=== PATIENT | female | born 1960 | race Caucasian/White ===

== ENCOUNTER → 2017-01-03 | Outpatient (CLI) | payer BC ==
[~2017-01-03] MED LIST: AMT10 PO; CLR10 PO
--- NOTE | 2017-01-04 13:17 | MAMMOGRAPHY REPORT ---
BILATERAL DIGITAL SCREENING MAMMOGRAM TOMOSYNTHESIS WITH CAD: 01/03/2017 CLINICAL HISTORY: Routine screening examination. TECHNIQUE: Breast tomosynthesis in addition to standard 2D mammography was performed. Current study was also evaluated with a Computer Aided Detection (CAD) system. COMPARISON: Comparison is made to exams dated: 12/28/2015 mammogram, 10/30/2014 mammogram, 07/19/2012 ma mmogram, and 06/19/2011 mammogram - [facility]. BREAST COMPOSITION: The tissue of both breasts is extremely dense, which lowers the sensitivity of mammography. FINDINGS: There are coarsening calcifications in the upper outer posterior right breast. No new susp icious mass, architectural distortion or cluster of new, suspicious microcalcifications is seen. IMPRESSION: ACR BI-RADS CATEGORY 2: BENIGN There is no mammographic evidence of malignancy. A 1 year screening mammogram is recommended. The p atient will receive written notification of the results. Approximately 10% of breast cancers are not detected with mammography. A negative mammographic repor t should not delay biopsy if a clinically suggestive mass is present. Lupe Grewal M.D. ay/:01/03/2017 17:07:41 Public Safety Officer: Padmini ALMONTE(Tracey)(Alfred), [facility] letter sent: Normal 1/2 BI-RADS Code: ACR BI-RADS Category 2: Benign
== END | disposition home or self-care (01) ==
LOC: C.MAMM 16:44
PROVIDERS: ATTEND Obstetrics & Gynecology
DX: Z12.31 Encounter for screening mammogram for malignant neoplasm of breast (principal)

== ENCOUNTER → 2017-09-27 | Outpatient (CLI) | payer BC | END | disposition home or self-care (01) | LOC: C.MAMM 08:18 | PROVIDERS: ATTEND Internal Medicine | DX: M80.079 Age-related osteoporosis with current pathological fracture, unspecified ankle and foot (principal) ==

== ENCOUNTER → 2017-12-27 | Outpatient (CLI) | payer OTHER | END | disposition home or self-care (01) | LOC: C.PAPS 09:24 | PROVIDERS: ATTEND Obstetrics & Gynecology | DX: N95.2 Postmenopausal atrophic vaginitis (principal) ==

== ENCOUNTER → 2018-01-09 | Outpatient (CLI) | payer OTHER ==
--- NOTE | 2018-01-10 15:17 | MAMMOGRAPHY REPORT ---
BILATERAL DIGITAL SCREENING MAMMOGRAM TOMOSYNTHESIS WITH CAD: 01/09/2018 CLINICAL HISTORY: Routine screening. Patient has no complaints. TECHNIQUE: Breast tomosynthesis in addition to standard 2D mammography was performed. Current study was also evaluated with a Computer Aided Detection (CAD) system. COMPARISON: Comparison is made to exams dated: 01/03/2017 mammogram, 12/28/2015 mammogram, 10/30/2014 mamm ogram, 10/28/2013 mammogram, 07/19/2012 mammogram, and 06/19/2011 mammogram - [facility]. BREAST COMPOSITION: The tissue of both breasts is extremely dense, which lowers the sensitivity of m ammography. FINDINGS: No suspicious masses, calcifications, or areas of architectural distortion are noted in ei ther breast. There has been no significant interval change compared to prior exams. Benign-appearing right breast calcifications are not significantly changed. IMPRESSION: ACR BI-RADS CATEGORY 2: BENIGN There is no mammographic evidence of malignancy. A 1 year screening mammogram is recommended. The pa tient will receive written notification of the results. Approximately 10% of breast cancers are not detected with mammography. A negative mammographic report should not delay biopsy if a clinically suggestive mass is present. Lindsey Aguilar M.D. ah/:01/09/2018 16:44:28 Floor Mechanic: Jemima HAWKINS)(M), [facility] letter sent: Normal 1/2 BI-RADS Code: ACR BI-RADS Category 2: Benign
== END | disposition home or self-care (01) ==
LOC: C.MAMM 16:24
PROVIDERS: ATTEND Obstetrics & Gynecology
DX: Z12.31 Encounter for screening mammogram for malignant neoplasm of breast (principal)

== ENCOUNTER 2020-10-01 06:46 | Observation (INO) ==
--- NOTE | 2020-09-15 13:38 | PAT Medication Instructions ---
Medication Instructions Date of Service September 15, 2020 Home Medications Medication Instructions Recorded oxycodone-acetaminophen [Percocet] 1 tab PO Q6H PRN #30 tab 03/11/20 [place]-3 + Vitamin D3 2 cap PO QAM Probiotic 40 mmu cells PO QAM biotin 5,000 mcg PO QAM cetirizine-pseudoephedrine [Zyrtec-D] 1 tab PO QAM cholecalciferol (vitamin D3) 125 mcg PO QAM multivitamin 1 tab PO QAM potassium gluconate 595 mg PO QAM oxycodone-acetaminophen [Percocet] 1 tab PO Q6H PRN cholecalciferol (vitamin D3) 125 mcg PO QAM docusate sodium [Colace] 100 mg PO QAM magnesium 500 mg PO HS meloxicam 15 mg PO QAM sennosides [Senna Soft] 15 mg PO QAM ASK your surgeon for instructions meloxicam 15 mg PO QAM STOP taking 2 weeks before surgery If surgery is within 2 weeks, stop taking as soon as possible. [place]-3 + Vitamin D3 2 cap PO QAM DO NOT take the morning of surgery Probiotic 40 mmu cells PO QAM biotin 5,000 mcg PO QAM cetirizine-pseudoephedrine [Zyrtec-D] 1 tab PO QAM cholecalciferol (vitamin D3) 125 mcg PO QAM multivitamin 1 tab PO QAM potassium gluconate 595 mg PO QAM cholecalciferol (vitamin D3) 125 mcg PO QAM docusate sodium [Colace] 100 mg PO QAM sennosides [Senna Soft] 15 mg PO QAM Take evening before surgery oxycodone-acetaminophen [Percocet] 1 tab PO Q6H PRN (if needed) magnesium 500 mg PO HS NOTHING TO EAT OR DRINK AFTER MIDNIGHT. Other Notes If you have any questions please call us at [phone] or [phone] or [phone] or [phone]
--- NOTE | 2020-09-20 09:28 | Anesthesiology Consultation ---
Date of Service September 20, 2020 Assessment & Plan (1) Encounter for pre-operative examination: COVID Status: As of 09/20 assessment, patient denies travel to endemic area, known exposure/sick contacts, or symptoms of COVID19. Patient instructed that they and their household members must follow strict social distancing guidelines, wear a mask in public and avoid travel/events/gatherings for 14 days prior to surgery -- pt specifically denies any travel or gathering planned for Thanksgiving. Preoperative COVID19 testing to be completed prior to surgery per surgeon's arrangements (09/27 at [facility]). Patient made aware to self-isolate as much as possible between COVID testing and surgery. Chart Review Chart Review: Acceptable Risk for Surgery and Patient seen in Pre Admission Testing Teaching & Discussion Instructed NPO after midnight before surgery, except medications with 15 cc of water. Medication instructions provided according to the PAT guidelines. History Surgery Operation Date: 10/01/20 09:30 Proposed Procedures p Right Total Knee Arthroplasty - Madi Schneider, Height/Weight Height: 5 ft 4 in Weight: 66.7 kg Allergies Allergy/AdvReac Type Severity Reaction Status Date / Time codeine Allergy Intermediate RASH/HIVES Verified 09/06/20 14:59 latex Allergy Intermediate Rash Verified 09/06/20 15:01 Penicillins Allergy Intermediate RASH/HIVES Verified 09/06/20 14:59 plastic packing from ortho Allergy Intermediate Rash Uncoded 09/06/20 14:59 procedur Additional Notes: Surgeon is aware of reaction to plastic taping/wrapping. Medications Home Medications Medication Instructions Recorded Confirmed Last Taken [place]-3 + Vitamin D3 2 cap PO QAM 03/01/20 09/06/20 03/10/20 Probiotic 40 mmu cells PO QAM 03/01/20 09/06/20 03/10/20 biotin 5,000 mcg PO QAM 03/01/20 09/06/20 03/10/20 cetirizine-pseudoephedrine 1 tab PO QAM 03/01/20 09/06/20 03/10/20 [Zyrtec-D] cholecalciferol (vitamin D3) 125 mcg PO QAM 03/01/20 09/06/20 03/10/20 [Vitamin D3] multivitamin 1 tab PO QAM 03/01/20 09/06/20 03/10/20 potassium gluconate 595 mg PO QAM 03/01/20 09/06/20 03/10/20 oxycodone-acetaminophen [Percocet] 1 tab PO Q6H PRN #30 tab 03/11/20 09/06/20 Unknown cholecalciferol (vitamin D3) 125 mcg PO QAM 09/06/20 09/06/20 Unknown [Vitamin D3] docusate sodium [Colace] 100 mg PO QAM 09/06/20 09/06/20 Unknown magnesium 500 mg PO HS 09/06/20 09/06/20 Unknown meloxicam 15 mg PO QAM 09/06/20 09/06/20 Unknown sennosides [Senna Soft] 15 mg PO QAM 09/06/20 09/06/20 Unknown Past Medical History Medical History (Updated 09/20/20 @ 13:59 by Figueroa Regalado) Environmental and seasonal allergies Heart valve disease Mild MR, TR and AI noted on 2019 stress echo. Leg cramps Osteoarthritis Exercise / Class Metabolic Activity 1 > 8 Run/Swim/Ski/Tennis (Pt very active playing tennis) Past Family History Family History Father Lung cancer Mother Parkinson disease Family history of diabetes mellitus Brother Family history of diabetes mellitus Past Surgical History Surgical History H/O dilation and curettage History of colonoscopy History of cryosurgery cervix History of repair of rotator cuff RIGHT History of tonsillectomy S/P carpal tunnel release RT S/P fine needle biopsy Right breast S/P ovarian cystectomy dermoid cyst [place] teeth removed Past Anesthesia History No Hx of Anesthesia Complications and No Family Hx of Anesthesia Complications History of PONV No Hx of PONV and Hx of Motion Sickness Social History Smoking Status: Former smoker tobacco type: cigarettes Do You Dip or Chew Tobacco: No Smoking End Date: MAY 2000 Hx Alcohol Use: No Hx Substance Use: No substance use type: does not use Review of Systems Pt denies any recent chest pain, shortness of breath, palpitations, cough, fever, URI, or uncontrolled acid reflux. Physical Exam Vital Signs BP: 118/77 P: 82bpm SPO2: 99% RA T: 98.1 F R: 16 ENMT Mouth: + dental restorations (many crowns on molars, also R upper canine); no c hipped teeth Thyromental Distance: > or= 3.5 Finger Breadths Mallampati Class: II Neck normal visual inspection; neck extension not limited Respiratory normal respiratory effort, lungs clear to auscultation Cardiovascular RRR, no murmur, no edema Vessels: + bounding carotid pulses; no carotid bruit Testing Laboratory Results 09/20/20 09:44 09/20/20 09:44 PT 10.7 Seconds (9.0-12.0) 09/20/20 09:44 INR 1.0 (0.9-1.1) 09/20/20 09:44 APTT 27.6 Seconds (21.0-31.0) 09/20/20 09:44 Blood Type B Positive 09/20/20 09:44 Antibody Screen NEGATIVE 09/20/20 09:44 A1C 08/07/20 = 5.8% Electrocardiogram Date: 09/20/20 Findings: + NSR @ (80bpm) *unconfirmed Chest X-Ray Date: 09/20/20 Findings: + NAD Stress Test Date: 10/20/19 Type: exercise Findings: + WNL; no ischemia Resting EF: 55-59% Mild MR/TR/AR. Grade I diastolic dysfunction. Exercise capacity above average.
--- NOTE | 2020-09-20 10:17 | XRay Report ---
XR chest Pre-admission PA/Lat CLINICAL HISTORY: Preoperative chest COMPARISON STUDY: May 2007 FINDINGS: The cardiac and mediastinal contours are normal. There is no evidence of focal pulmonary co nsolidation. There is no evidence of failure. No pleural effusions are visualized.[ IMPRESSION: No active disease in the chest. ACT 112: Negative or not required by law. Electronically signed by: Quoc Ibarra M.D. 09/20/2020 10:15 AM
[2020-09-20 11:02] LABS: Basophils # (auto) 0.02 K/uL (0-0.2); Basophils % (auto) 0.5 %; Eosinophils # (auto) 0.01 K/uL (0-0.5); Eosinophils % (auto) 0.2 %; Hematocrit (blood only) 36.4 % (37-47); Hemoglobin 12.5 g/dL (12.0-16.0); Immature Granulocytes # (auto) 0.01 K/uL (0.00-0.02); Immature Granulocytes % (auto) 0.2 %; Mean Corpuscular Hemoglobin 30.9 pg (25-34); Mean Corpuscular Hgb Conc 34.3 g/dL (32-36); Mean Corpuscular Volume 90.1 fL (80-100); Mean Platelet Volume 10.4 fL (7.4-10.4); Monocytes # (auto) 0.45 K/uL (0.11-0.59); Monocytes % (auto) 10.7 %; Neutrophils # (auto) 2.41 K/uL (1.4-6.5); Neutrophils % (auto) 57.4 %; Platelet Count 238 K/uL (130-400); RDW Coefficient of Variation 11.8 % (11.5-14.5); RDW Standard Deviation 38.7 fL (36.4-46.3); Red Blood Count 4.04 M/uL (4.2-5.4)
[2020-09-20 11:14] LABS: Partial Thromboplastin Time 27.6 Seconds (21.0-31.0); Prothrombin Time 10.7 Seconds (9.0-12.0)
[2020-09-20 11:45] LABS: BUN Creatinine Ratio 19.4 (10-20); Calcium 9.1 mg/dl (8.5-10.1); Est GFR (African American) 100.6; Est GFR (Non-African American) 86.8; Potassium 4.1 mmol/L (3.5-5.1)
--- NOTE | 2020-09-21 06:01 | Electrocardiogram Report ---
Test Reason : Blood Pressure : / mmHG Vent. Rate : 080 BPM Atrial Rate : 080 BPM P-R Int : 138 ms QRS Dur : 086 ms QT Int : 390 ms P-R-T Axes : 067 045 057 degrees QTc Int : 449 ms Normal sinus rhythm Normal ECG When compared with ECG of 19-JUN-2007 19:32, Vent. rate has increased BY 28 BPM Confirmed by Allan Dos Santos ([id number]) on 09/21/2020 6:01:08 AM Referred By: Madi Schneider Confirmed By:Allan Dos Santos
[~2020-10-01 06:46] MED LIST changes: +ACETAMINOPHEN 500 MG TAB PO SCH; -AMT10 PO; +BUPIVACAINE 0.25% 30 ML VIAL ONE; +BUPIVACAINE 0.5 % 5 MG/1 ML PF 10ML VIAL ONE; -CLR10 PO; +FAMOTIDINE 20 MG TAB PO SCH; +GABAPENTIN 600 MG DOSE PO SCH; +LR 500ML BOLUS, THEN 15ML/HR IV SCH; +LR 60ML/HR IV SCH; +ROPIVACAINE 0.5% HCL/PF 150 MG, BUPIVACAINE 0.75% MPF 20 ML, EPINEPHrine 30MG/30ML (OR ... INFIL SCH; +TRANEXAMIC ACID 1,000 MG **IV Intra-op IV SCH; +TRANEXAMIC ACID 1,000 MG **IV Pre-op IV SCH; +ceFAZolin 1000MG 1,000 MG/7.5 ML SYR IV SCH; +dexAMETHasone 4 MG TAB PO SCH
--- NOTE | 2020-10-01 06:46 | History & Physical Report ---
Date of Service October 01, 2020 Assessment & Plan (1) Right knee DJD: We will proceed with a right total knee arthroplasty. Postoperatively she will be started on aspirin for DVT prophylaxis. She will be kept overnight for postoperative medical management. She plans to use [facility] as a private physical therapist upon discharge. Present on Admission?: Yes History of Present Illness Chief Complaint: Primary osteoarthritis of the right knee Primary Care Provider: Braeden Chavira MD Cristiana is a pleasant 60-year-old female has been dealing with chronic increasing right knee pain. X-rays and clinical examination have been diagnostic for advanced osteoarthritis of the right knee. After failing conservative treatment, she has elected to proceed with a right total knee arthroplasty. Allergies Allergy/AdvReac Type Severity Reaction Status Date / Time codeine Allergy Intermediate RASH/HIVES Verified 09/06/20 14:59 latex Allergy Intermediate Rash Verified 09/06/20 15:01 Penicillins Allergy Intermediate RASH/HIVES Verified 09/06/20 14:59 plastic packing from ortho Allergy Intermediate Rash Uncoded 09/06/20 14:59 procedur Home Medications Medication Instructions Recorded Confirmed Type [place]-3 + Vitamin D3 2 cap PO QAM 03/01/20 09/06/20 History Probiotic 40 mmu cells PO QAM 03/01/20 09/06/20 History biotin 5,000 mcg PO QAM 03/01/20 09/06/20 History cetirizine-pseudoephedrine 1 tab PO QAM 03/01/20 09/06/20 History [Zyrtec-D] cholecalciferol (vitamin D3) 125 mcg PO QAM 03/01/20 09/06/20 History [Vitamin D3] multivitamin 1 tab PO QAM 03/01/20 09/06/20 History potassium gluconate 595 mg PO QAM 03/01/20 09/06/20 History oxycodone-acetaminophen [Percocet] 1 tab PO Q6H PRN #30 tab 03/11/20 09/06/20 Rx cholecalciferol (vitamin D3) 125 mcg PO QAM 09/06/20 09/06/20 History [Vitamin D3] docusate sodium [Colace] 100 mg PO QAM 09/06/20 09/06/20 History magnesium 500 mg PO HS 09/06/20 09/06/20 History meloxicam 15 mg PO QAM 09/06/20 09/06/20 History sennosides [Senna Soft] 15 mg PO QAM 09/06/20 09/06/20 History Past Med/Surg History Medical History Environmental and seasonal allergies Heart valve disease Mild MR, TR and AI noted on 2019 stress echo. Leg cramps Osteoarthritis Surgical History H/O dilation and curettage History of colonoscopy History of cryosurgery cervix History of repair of rotator cuff RIGHT History of tonsillectomy S/P carpal tunnel release RT S/P fine needle biopsy Right breast S/P ovarian cystectomy dermoid cyst [place] teeth removed Family History Father Lung cancer Mother Parkinson disease Family history of diabetes mellitus Brother Family history of diabetes mellitus Social History Smoking Status: Former smoker Second Hand Exposure: Yes ( KID); Hx Alcohol Use: No Hx Substance Use: No Preferred Language: Bangladeshi Communication Ability: Effective Brick Handler Required: No Beliefs That Will Affect Care: None marital status: Single Current Living Situation: Significant Other Feels Safe at Home: Yes Assistive Devices: Glasses Review of Systems Review of Systems: All systems reviewed & are unremarkable except as noted in HPI & below Physical Exam Constitutional: WD/WN, vitals as above Eyes: PERRL, conjunctivae normal, anicteric sclerae ENMT: external ear and nose normal, oropharynx normal Neck: trachea midline, no thyromegaly Respiratory: normal respiratory effort Cardiovascular: RRR, no murmur, no edema Gastrointestinal (Abdomen): normal bowel sounds, soft, nontender, no hepatosplenomegaly Musculoskeletal: On physical examination of the right knee there is a trace effusion. There is near full range of motion and no evidence of instability. There is significant tenderness palpation along the medial and lateral joint lines and over the distal femoral condyles. Psychiatric: A+Ox3, euthymic affect Results & Data Results & Data ([facility]) Diagnostic Findings Radiographs of the right knee demonstrate advanced osteoarthritis with joint space narrowing osteophyte formation and [id number] articulation. PG Care Time/CCT Total # of Minutes Spent Total Time Spent with Patient: Total time spent is greater than 50% in coordination of care (as documented) at patient's floor/unit and/or counseling patient: Coding Level of Care Code None Diagnoses Right knee DJD M17.11
[2020-10-01] MEDS ORDERED: MIDAZOLAM HCL 1 MG/ML 2ML VIAL ONE ×3 (07:43→09:36)
[2020-10-01] MEDS ORDERED: ePHEDrine sulfate 50 MG/ML AMP IV PRN (08:48)
[2020-10-01] MEDS ORDERED: ONDANSETRON INJ 2 MG/ML 2 ML VIAL IV PRN ×2 (08:48→12:25)
[2020-10-01] MEDS ORDERED: ATROPINE SULFATE 0.1 MG/ML 10ML SYR IV PRN (08:48)
[2020-10-01] MEDS ORDERED: fentaNYL citrate 100 MCG/2 ML VIAL IV PRN (08:48)
[2020-10-01] MEDS ORDERED: ORTHO JOINT ANESTHETIC ONE (09:00)
[2020-10-01] MEDS ORDERED: PROPOFOL IV EMULSION 10 MG/ML 20 ML VIAL IV ONE (09:07)
[2020-10-01] MEDS ORDERED: ONDANSETRON INJ 2 MG/ML 2 ML VIAL ONE (09:07)
[2020-10-01] MEDS ORDERED: ePHEDrine sulfate 50 MG/ML SYR ONE (10:03)
[2020-10-01] MEDS ORDERED: PHENYLEPHRINE 100MCG/ML 5ML SYR ONE (10:16)
--- NOTE | 2020-10-01 10:41 | Operative Report ---
PG Post Operative Report Pre & Post Diagnosis Operation Date: 10/01/20 09:10 Pre-Op Diagnosis: Right Knee Degenerative Joint Disease Post-Op Diagnosis: Right Knee Degenerative Joint Disease I identified the patient and participated in the time-out.: Yes Procedure Operation Date: 10/01/20 09:10 Actual Procedures p Right Total Knee Arthroplasty(Right) - Madi Schneider DO Surgeon Madi Schneider DO Jewelry Drill Operator Madi Nunez PAC Estimated Blood Loss 20 Findings Consistent with Post-Op Diagnosis Specimens Right femoral and tibial bone Complications none Disposition Disposition: Recovery Room Indications Cristiana is a pleasant 60-year-old female who is been dealing with chronic increasing right knee pain. X-rays and clinical examination have been diagnostic for advanced osteoarthritis of the right knee. After failing conservative treatment, she elected to proceed with a right total knee arthroplasty. Description of Procedure Implants used: I used a Toby Persona total knee arthroplasty system with a size 6 standard femur, D tibia, 29 patella, and a size 10 medial congruent polyethylene bearing. All components were cemented in place with Palacos G cement. Cristiana arrived [facility] for the above procedure. She was seen in the preoperative holding area and the operative extremity was identified and signed. She was given a preoperative antibiotic, TXA, a spinal anesthetic and an adductor nerve block. She was taken back to the operating room and laid on the table in supine position. She was given basic sedation. The operative knee was then prepped and draped in sterile fashion. A timeout was done, and the patient and the operative extremity was properly identified. A midline incision was made directly over the patella. Dissection was taken down to the extensor mechanism. A subvastus arthrotomy was used. The medial retinaculum was released and the fat pad was mostly excised. The knee was flexed and the ACL, PCL, and meniscus were removed. A drill was sent down the center of the femoral canal followed by an intramedullary aylin. Off that aylin a distal femoral cutting block was placed. 9 mm was resected off the distal femur at 5 of valgus. A posterior referencing AP sizing guide was then placed on the distal femur. The femur measured to be a size 6 standard. 2 drill holes were placed in 3 of external rotation. A 4-in-1 cutting block was then impacted into place. Anterior, posterior, and chamfer cuts were then made. The proximal tibia was then exposed. An external tibial alignment guide was placed. A tibial cut guide was then anchored in place and the proximal tibia was then resected. The posterior aspect of the knee was then opened up and any additional meniscus fragments and osteophytes were removed. The tibia measured to be a size D. The tibial plate was then placed in the appropriate rotation and the tibia was drilled and punched. Trial components were then placed. I used a size 10 medial congruent p olyethylene insert. The knee was brought through a full range of motion and felt to be stable. The peg holes for the femoral component were then drilled. The patella was then everted and 9 mm was resected off the posterior aspect of the patella. The patella measured to be a size 29. 3 peg holes were then drilled. A trial patella was placed. The knee was once again brought through a full range of motion and felt to be stable. Trial components were then removed. The surrounding soft tissues were injected with 100 cc of an orthopedic pain control cocktail. All components were then cemented into place with Palacos G cement. The final polyethylene insert was then snapped into place. Once cement was dry the tourniquet was deflated. Hemostasis was obtained. A dilute betadyne lavage was then done for 3 minutes. The joint was then irrigated with normal saline solution. The subvastus arthrotomy was then closed with #1 Vicryl suture. The skin was closed with 2-0 Vicryl, 3-0V lock suture, and anthony. A Silverlon and a soft compressive dressing were placed. She was then transferred to a hospital bed and taken to the postanesthesia care unit in stable condition. She tolerated the procedure well. Madi Nunez PA-C, was present for the entire procedure. He was critical for patient positioning, prepping, draping, retraction exposure, wound closure and application of sterile dressing. I attest to the content of the Intraoperative Record and any orders documented therein. Any exceptions are noted below.
--- NOTE | 2020-10-01 11:17 | XRay Report ---
TWO VIEWS RIGHT KNEE CLINICAL HISTORY: Postoperative examination. FINDINGS: AP and crosstable lateral portable views of the right knee are obtained. A right knee arthr oplasty is in near anatomic alignment. There has been undersurface remodeling of the patella. No acut e fracture is seen. There are expected postoperative changes around the knee including skin clips, so ft tissue edema, and subcutaneous gas. IMPRESSION: Expected postoperative changes status post right knee arthroplasty. No acute fracture is seen. ACT 112: Negative or not required by law. Electronically signed by: Olman Guerra M.D. 10/01/2020 11:16 AM
[2020-10-01] MEDS ORDERED: NALOXONE HCL 0.4 MG/1 ML VIAL/CARP IV PRN (12:25)
[2020-10-01] MEDS ORDERED: oxyCODONE HCL IR 5 MG TAB (IMMEDIATE RELEASE) PO PRN (12:25)
[2020-10-01] MEDS ORDERED: METOCLOPRAMIDE HCL INJ 5 MG/ML 2 ML VIAL IV PRN (12:25)
[2020-10-01] MEDS ORDERED: HYDROmorphone INJ 0.5 MG/0.5 ML SYR IV PRN (12:25)
[2020-10-01] MEDS ORDERED: bisacodyL 10 MG SUPP PR PRN (12:25)
[2020-10-01] MEDS ORDERED: MAGNESIUM HYDROXIDE SUSP 30 ML UDC PO PRN (12:25)
[2020-10-01] MEDS: SODIUM CHLORIDE 0.9% 1000ML 1,000 ML IV SCH ×2 (12:40→21:55)
--- NOTE | 2020-10-01 12:50 | Anesthesiology Progress Note ---
Date of Service October 01, 2020 Anesthesia Post Procedure Vital Signs Vital Signs: Temp Pulse Pulse Resp BP Pulse Ox 10/01/20 12:25 36.6 C 81 15 96/61 L 97 10/01/20 12:00 73 14 101/61 95 10/01/20 11:45 69 16 104/57 L 98 10/01/20 11:35 36.4 C L 72 15 101/64 94 10/01/20 11:25 75 16 96/65 L 96 10/01/20 11:15 71 14 99/64 L 97 10/01/20 11:05 84 15 115/65 100 10/01/20 10:55 36.2 C L 77 16 100/62 99 10/01/20 07:50 73 18 136/83 98 10/01/20 07:31 37.5 C 87 18 136/79 99 Transfer of Care Handoff Completed per policy Notes Mental Status: alert / awake / arousable and participated in evaluation Nausea / Vomiting: adequately controlled Pain: adequately controlled Airway Patency, RR, SpO2: stable & adequate BP & HR: stable & adequate Hydration State: stable & adequate Neuraxial Anesthesia: was administered and sensory block is resolving Anesthetic Complications: no major complications apparent and Pt Satisfied with anesthetic care
[2020-10-01] MEDS: ACETAMINOPHEN 500 MG TAB PO SCH ×2 (13:32→21:48)
[2020-10-01] MEDS: KETOROLAC 30 MG/ML VIAL IV SCH ×2 (13:32→19:36)
[2020-10-01] MEDS: ceFAZolin 2000MG 2,000 MG/15 ML SYR IV SCH (18:12)
[2020-10-01] MEDS ORDERED: SENNA 8.6 MG TAB PO SCH (21:00)
[2020-10-01] MEDS ORDERED: MAGNESIUM OXIDE 400 MG TAB PO SCH (21:00)
[2020-10-01] MEDS: ASPIRIN 81 MG ECTAB PO SCH (21:49)
[2020-10-01] MEDS: DOCUSATE SODIUM 100 MG CAP PO SCH (21:49)
[2020-10-01] MEDS ORDERED: Nursing to Pharmacy Communication SCH (22:00)
[2020-10-02] MEDS ORDERED: oxyCODONE HCL IR 5 MG TAB (IMMEDIATE RELEASE) PO SCH
[2020-10-02] MEDS: KETOROLAC 30 MG/ML VIAL IV SCH ×3 (01:31→12:40)
[2020-10-02] MEDS: ceFAZolin 2000MG 2,000 MG/15 ML SYR IV SCH (01:31)
[2020-10-02 04:25] LABS: Hematocrit (blood only) 30.7 % (37-47); Hemoglobin 10.6 g/dL (12.0-16.0); Mean Corpuscular Hemoglobin 30.7 pg (25-34); Mean Corpuscular Hgb Conc 34.5 g/dL (32-36); Mean Platelet Volume 9.6 fL (7.4-10.4); Platelet Count 190 K/uL (130-400); RDW Coefficient of Variation 11.9 % (11.5-14.5); RDW Standard Deviation 38.8 fL (36.4-46.3); Red Blood Count 3.45 M/uL (4.2-5.4); White Blood Count 10.25 K/uL (4.8-10.8)
[2020-10-02 04:41] LABS: BUN Creatinine Ratio 21.4 (10-20); Creatinine Clr Calc Pharmacy 75.2 ml/min; Est GFR (African American) 109.2; Est GFR (Non-African American) 94.2; Potassium 4.3 mmol/L (3.5-5.1)
[2020-10-02] MEDS ORDERED: dexAMETHasone 4 MG TAB PO SCH (08:00)
[2020-10-02] MEDS: ASPIRIN 81 MG ECTAB PO SCH (09:00)
[2020-10-02] MEDS ORDERED: NON-FORMULARY MEDICATION (Potassium Gluconate 595 mg (99 mg) Tablet) PO SCH (09:00)
[2020-10-02] MEDS ORDERED: MULTIVITAMIN TAB PO SCH (09:00)
[2020-10-02] MEDS ORDERED: MAGNESIUM OXIDE 400 MG TAB PO SCH (09:00)
[2020-10-02] MEDS ORDERED: SENNOSIDES 15 MG PO SCH (09:00)
[2020-10-02] MEDS: DOCUSATE SODIUM 100 MG CAP PO SCH (09:00)
[2020-10-03] MEDS: ACETAMINOPHEN 500 MG TAB PO SCH (06:00)
--- NOTE | 2020-10-03 08:29 | Discharge Summary ---
Date of Service October 03, 2020 Admission HPI Per Admitting Provider Cristiana is a pleasant 60-year-old female has been dealing with chronic increasing right knee pain. X-rays and clinical examination have been diagnostic for advanced osteoarthritis of the right knee. After failing co nservative treatment, she has elected to proceed with a right total knee arthroplasty. Principal Diagnosis Right knee replacement Discharge Data Allergies Allergy/AdvReac Type Severity Reaction Status Date / Time codeine Allergy Intermediate RASH/HIVES Verified 10/02/20 21:52 latex Allergy Intermediate Rash Verified 10/02/20 21:52 Penicillins Allergy Intermediate RASH/HIVES Verified 10/02/20 21:52 plastic packing from ortho Allergy Intermediate Rash Uncoded 10/02/20 21:52 procedur Consultations 10/01/20 12:25 Consult Case Management - Discharge Planning Routine Procedures Performed Operation Date: 10/01/20 09:10 Actual Procedures p Right Total Knee Arthroplasty(Right) - Madi Schneider DO Ordered Studies 10/01/20 05:00 US - OR guided needle placemen Routine Hospital Course (1) Status post right knee replacement: On October 01, 2020 Shania arrived at [facility] and underwent a right total knee arthroplasty without complication. She had a spinal anesthetic. Postoperatively she was started on aspirin for DVT prophylaxis and transferred to the general orthopedic floors. Her hospital course was uneventful. On postop day #1 her H&H was stable and her pain was well controlled. She was able to participate well with physical therapy doing ambulation and range of motion exercises. She was then discharged to home. She will follow-up with orthopedics in 2 weeks. Total Time Total Time Spent Total Time Spent (In Minutes): 20 Discharge Plan Discharge Items Patient Disposition: Home - Home Health Services Reason For Visit: Degenerative Joint Disease Discharge Diagnosis: Right knee replacement Activity: As commented below Non-emergency contact: Surgeon Call non-emergency contact if: your wound has increased redness and your wound has increased drainage Follow-up/Referrals: Braeden Chavira MD [Primary Care Provider] - Diet: Regular Addtl Attending Provider Instructions: Activity and Therapy Recommendations: * If you are using [facility] then therapy will be provided at your home until they feel you have accomplished all of your goals. * If you are using [facility] then Physical Therapy will be provided until they feel you are ready to start Outpatient Physical Therapy. * If you are not using home therapy then Outpatient Physical Therapy should start about 3-5 days from your day of surgery. Therapy will last about 6-10 weeks * It is important not to put a pillow under your knee when you are relaxing or sleeping. It is just as important to make sure you are getting your knee perfectly straight as it is to regain your knee bend. * You were shown a series of exercises in the hospital. Do these exercises three times each day including the exercises you were shown in physical therapy. * Get up and walk several times each day. For the first four weeks, try not to stand or walk for more than one hour at a time. If you do stand or walk for more than one hour, you will not hurt anything, but your leg will likely swell. * As you feel comfortable, you may change from the walker or crutches to a cane and then to independent walking. Medications: * Narcotic You will likely be sent home from the hospital with a prescription for the narcotic pain medication that worked best throughout your stay. * Aspirin Most patients will be required to take Aspirin 81mg twice a day for 6 weeks after surgery. This is obtained [id number] and a prescription is not necessary. * Other medications may be prescribed for specific circumstances. If you have any questions, please call the office at . * Resume previous home medications unless otherwise instructed TEDs/Elastic Stockings: The white elastic stockings help limit swelling and prevent blood clots from forming in your legs.~ The more you wear them, the more they work. Wear them for six weeks. Dressing Care: Leave the Silverlon dressing in place for 7 days. After 7 days you may remove the dressing. If the incision is not draining then you may leave the anthony open to air. If there is a little bit of drainage or if the anthony are getting stuck on your clothing then cover the incision with a dry dressing. The anthony will be removed at your 2 week follow-up appointment. Showering: You may shower with the Silverlon dressing in place. Do not let the shower spray hit the dressing directly. Pat the Silverlon dressing dry. If the dressing becomes wet underneath, then simply remove the dressing. Keep the incision dry until you are 7 days out from the day of surgery. After 7 days you may remove the Silverlon dressing and shower with the anthony exposed. Let soapy water run over the anthony and pat them dry. Do not scrub or soak the incision. Things To Watch For: * Drainage from the incision site that occurs more than one week after your surgery. * Increased redness at the incision site. * Fever above 102 degrees Fahrenheit. * Unusual chest pain or shortness of breath. * Call [facility] at with any of the above problems Follow-Up Visit: Follow-up with Dr. Schneider's PA (Madi Nunez) 2-3 weeks after your day of surgery. He will remove your anthony and answer any questions. If you have any additional questions or concerns, Dr Schneider is usually in the office at the same time and will be available An appointment was probably scheduled when you signed-up for surgery in the office. If you have any questions call Office Instructions: More detailed instructions as well as Frequently Asked Questions were provided in a folder by our office when you signed-up for surgery. Please review these instructions when you get home. If you have any further questions or concerns, please feel free to call the office at [phone] Pending Studies at Discharge: No Stand-Alone Forms: My [facility] [place] [employer], Smoking Cessation Medications and DC Order Prescriptions: New oxycodone 5 mg tablet 5 mg PO Q6H PRN (Reason: pain) Qty: 30 RF: 0 aspirin 81 mg Tablet,Delayed Release (Dr/Ec) 81 mg PO BID 42 Days Qty: 0 RF: 0 Continued multivitamin Tablet 1 tab PO QAM RF: 0 cetirizine-pseudoephedrine [Zyrtec-D] 5-120 mg Tablet Extended Release 12 Hr 1 tab PO QAM RF: 0 [place]-3 + Vitamin D3 [phone] [id number] Capsule 2 cap PO QAM RF: 0 potassium gluconate 595 mg (99 mg) Tablet 595 mg PO QAM RF: 0 Probiotic 20 billion cell Capsule 40 mmu cells PO QAM RF: 0 biotin 5,000 mcg Tablet,Disintegrating 5,000 mcg PO QAM RF: 0 meloxicam 15 mg Tablet 15 mg PO QAM RF: 0 Senna Soft 15 mg Tablet 15 mg PO QAM RF: 0 docusate sodium [Colace] 100 mg Capsule 100 mg PO QAM RF: 0 magnesium 250 mg Tablet 500 mg PO HS RF: 0 cholecalciferol (vitamin D3) [Vitamin D3] 125 mcg (5,000 unit) Tablet 125 mcg PO QAM RF: 0 acetaminophen [Tylenol Extra Strength] 500 mg Tablet 1,000 mg PO Q6H PRN (Reason: Pain) RF: 0 Discontinued aspirin 81 mg Tablet,Delayed Release (Dr/Ec) 81 mg PO ONCE RF: 0 ketorolac 30 mg/mL Syringe 30 mg IM ONCE RF: 0 Discharge Orders: Discharge Order (Routine); Ordered 10/02/20 Ordered By: Madi Schneider Admission Data Admit Date/Time: 10/01/20 11:00 Attending Provider: Madi Schneider Admit Provider: Madi Schneider Primary Care Provider: Braeden Chavira Coding Level of Care Code D/C Day Management <30 mins Diagnoses Status post right knee replacement Z96.651
== END 2020-10-02 13:18 | disposition home health service (06) ==
LOC: 3E 06:46 → ASU 06:46